=== PATIENT | male | born 1985 | race Caucasian/White ===

== ENCOUNTER 2022-08-06 22:10 | Emergency (ER) | payer BC, OTHER ==
[~2022-08-06] VITALS: Ht 177.8 cm; Wt 95.5 kg
[2022-08-06] MEDS ORDERED: TETRACAINE HCL 0.5% OPTH(EYE) SOLN 4ML LEFTEYE ONE (22:45)
[2022-08-06 23:40] VITALS: BP 135/84
[2022-08-06] MEDS ORDERED: MAX5OPS OP (23:46)
== END 2022-08-07 00:23 | disposition home or self-care (01) ==
LOC: ER 22:10
DX: T15.92XA Foreign body on external eye, part unspecified, left eye, initial encounter (principal)
CPT/HCPCS: 65220